=== PATIENT | female | born 1960 | race Caucasian/White ===

== ENCOUNTER 2021-04-20 18:52 | Emergency (ER) | payer SELFPAY ==
[~2021-04-20] VITALS: Ht 157.5 cm; Wt 53.1 kg
[2021-04-20 19:06] VITALS: BP 147/86
--- NOTE | 2021-04-20 19:46 | NUR ---
Patient discharged with v/s stable. Written and verbal after care instructions given and explained. Patient verbalized understanding. Ambulatory with steady gait. All questions addressed prior to discharge. Advised to follow up with PMD.
== END 2021-04-20 19:46 | disposition home or self-care (01) ==
LOC: MED 18:52
DX: S71.152A Open bite, left thigh, initial encounter (principal); W54.0XXA Bitten by dog, initial encounter; Y93.89 Activity, other specified; Y92.89 Other specified places as the place of occurrence of the external cause; Y99.8 Other external cause status
CPT/HCPCS: 90471; 90715; 99283